=== PATIENT | male | born 1970 | race Caucasian/White ===

== ENCOUNTER 2017-03-04 09:14 | Emergency (ER) | payer OTHER ==
[~2017-03-04] VITALS: Ht 182.9 cm; Wt 150.6 kg
[~2017-03-04 09:14] MED LIST: ECO81 PO; NAPROSYN500 MG PO; ZOC20 PO
[2017-03-04 10:00] LABS: UA SPECIFIC GRAVITY 1.025 (1.005-1.035); microscopic required? YES; urine erythrocyte 2+ (NEGATIVE)
[2017-03-04 11:06] VITALS: BP 128/87
== END 2017-03-04 11:06 | disposition home or self-care (01) ==
LOC: ED 09:14
PROVIDERS: Emergency Medicine
DX: N20.0 Calculus of kidney (principal)
CPT/HCPCS: J3010